=== PATIENT | male | born 1990 | race Caucasian/White ===

== ENCOUNTER 2017-06-12 09:09 | Emergency (ER) | payer OTHER ==
[~2017-06-12] VITALS: Ht 165.1 cm; Wt 52.2 kg
[~2017-06-12 09:09] MED LIST: CLARITIN10 MG PO; ZITHROMAX Z PA250 MG PO
== END 2017-06-12 10:02 | disposition home or self-care (01) ==
LOC: ED 09:09
DX: S60.221A Contusion of right hand, initial encounter (principal); X58.XXXA Exposure to other specified factors, initial encounter; Y93.89 Activity, other specified; Y92.9 Unspecified place or not applicable; Y99.9 Unspecified external cause status

== ENCOUNTER 2017-06-26 17:52 | Emergency (ER) | payer SELFPAY ==
[~2017-06-26] VITALS: Wt 52.2 kg
== END 2017-06-26 19:04 | disposition home or self-care (01) ==
LOC: ED 17:52
DX: Z00.8 Encounter for other general examination (principal)

== ENCOUNTER 2017-09-12 06:32 | Emergency (ER) | payer OTHER ==
[~2017-09-12] VITALS: Ht 162.5 cm; Wt 51.7 kg
[2017-09-12] MEDS ORDERED: IBU800 MG PO (07:48)
== END 2017-09-12 08:40 | disposition home or self-care (01) ==
LOC: ED 06:32
DX: S90.31XA Contusion of right foot, initial encounter (principal); F17.200 Nicotine dependence, unspecified, uncomplicated; W22.8XXA Striking against or struck by other objects, initial encounter; Y93.89 Activity, other specified; Y92.89 Other specified places as the place of occurrence of the external cause; Y99.8 Other external cause status

== ENCOUNTER 2018-03-29 13:30 | Emergency (ER) | payer SELFPAY ==
[~2018-03-29] VITALS: Ht 162.5 cm; Wt 52.2 kg
[~2018-03-29 13:30] MED LIST changes: +IBU800 MG PO
[2018-03-29] MEDS ORDERED: CLINDAMYCIN HC300 MG PO (13:36)
[2018-03-29] MEDS ORDERED: NAPROSYN500 MG PO (13:36)
== END 2018-03-29 13:51 | disposition home or self-care (01) ==
LOC: ED 13:30
DX: K04.7 Periapical abscess without sinus (principal)

== ENCOUNTER 2018-08-27 12:43 | Emergency (ER) | payer SELFPAY ==
[~2018-08-27] VITALS: Ht 162.5 cm; Wt 49.0 kg
[~2018-08-27 12:43] MED LIST changes: +CLINDAMYCIN HC300 MG PO; +NAPROSYN500 MG PO
== END 2018-08-27 13:35 | disposition home or self-care (01) ==
LOC: ED 12:43
DX: Z02.79 Encounter for issue of other medical certificate (principal)

== ENCOUNTER 2019-02-05 05:27 | Emergency (ER) | payer SELFPAY ==
[~2019-02-05] VITALS: Ht 165.1 cm; Wt 50.8 kg
== END 2019-02-05 06:05 | disposition home or self-care (01) ==
LOC: ED 05:27
DX: Z02.79 Encounter for issue of other medical certificate (principal); R05 Cough; R52 Pain, unspecified

== ENCOUNTER 2019-05-01 15:29 | Emergency (ER) | payer SELFPAY ==
[~2019-05-01] VITALS: Ht 162.5 cm; Wt 52.2 kg
== END 2019-05-01 15:47 | disposition home or self-care (01) ==
LOC: ED 15:29
DX: E86.0 Dehydration (principal); Z02.79 Encounter for issue of other medical certificate

== ENCOUNTER 2019-05-07 09:51 | Emergency (ER) | payer OTHER ==
[~2019-05-07] VITALS: Ht 162.5 cm; Wt 49.9 kg
== END 2019-05-07 12:00 | disposition home or self-care (01) ==
LOC: ED 09:51
DX: S92.532A Displaced fracture of distal phalanx of left lesser toe(s), initial encounter for closed fracture (principal); S50.02XA Contusion of left elbow, initial encounter; W22.8XXA Striking against or struck by other objects, initial encounter; Y93.89 Activity, other specified; Y92.89 Other specified places as the place of occurrence of the external cause; Y99.9 Unspecified external cause status

== ENCOUNTER 2019-07-03 12:23 | Emergency (ER) | payer SELFPAY ==
[~2019-07-03] VITALS: Ht 162.5 cm; Wt 49.9 kg
== END 2019-07-03 13:15 | disposition home or self-care (01) ==
LOC: ED 12:23
DX: J02.9 Acute pharyngitis, unspecified (principal); Z02.79 Encounter for issue of other medical certificate

== ENCOUNTER 2019-08-14 12:08 | Emergency (ER) | payer SELFPAY ==
[~2019-08-14] VITALS: Ht 162.5 cm; Wt 51.7 kg
[2019-08-14] MEDS ORDERED: TESSALON PERLE100 M1 PO (13:24)
[2019-08-14] MEDS ORDERED: SEPTDS PO (13:24)
== END 2019-08-14 13:45 | disposition home or self-care (01) ==
LOC: ED 12:08
DX: J32.9 Chronic sinusitis, unspecified (principal)

== ENCOUNTER 2019-12-26 11:35 | Emergency (ER) | payer SELFPAY ==
[~2019-12-26] VITALS: Ht 162.5 cm; Wt 52.6 kg
[~2019-12-26 11:35] MED LIST changes: +SEPTDS PO; +TESSALON PERLE100 M1 PO
[2019-12-26] MEDS ORDERED: VALTREX1000 MG PO (12:41)
[2019-12-26 12:57] LABS: BILIRUBIN NEGATIVE (NEGATIVE); BLOOD NEGATIVE (NEGATIVE); CLARITY CLEAR (CLEAR); COLOR YELLOW (YELLOW); GLUCOSE NEGATIVE (NEGATIVE); KETONE NEGATIVE (NEGATIVE); LEUKO ESTERASE NEGATIVE (NEGATIVE); NITRITE NEGATIVE (NEGATIVE); PH 7.5 (5.0-9.0); UROBILINOGEN 0.2 E.U./dl (0.2-1.0)
[2019-12-26 12:58] LABS: BACTERIA TRACE
[2019-12-27 17:10] LABS: GONOCOCCUS BY NAA Negative (Negative)
== END 2019-12-26 13:07 | disposition home or self-care (01) ==
LOC: ED 11:35
PROVIDERS: Emergency Medicine
DX: A60.01 Herpesviral infection of penis (principal); Z20.2 Contact with and (suspected) exposure to infections with a predominantly sexual mode of transmission

== ENCOUNTER 2020-05-31 08:53 | Emergency (ER) | payer SELFPAY ==
[~2020-05-31] VITALS: Ht 162.5 cm; Wt 52.2 kg
[~2020-05-31 08:53] MED LIST changes: +VALTREX1000 MG PO
[2020-05-31] MEDS ORDERED: VALTREX1000 MG PO (09:12)
== END 2020-05-31 09:22 | disposition home or self-care (01) ==
LOC: ED 08:53
DX: A60.00 Herpesviral infection of urogenital system, unspecified (principal)

== ENCOUNTER 2020-08-15 12:49 | Emergency (ER) | payer SELFPAY ==
[~2020-08-15] VITALS: Wt 52.2 kg
[2020-08-15] MEDS ORDERED: FLONASE ALLERG9.9 ML NAS ×3 (14:09→14:22)
[2020-08-15] MEDS ORDERED: ZITHROMAX250 MG PO ×3 (14:09→14:22)
== END 2020-08-15 14:18 | disposition home or self-care (01) ==
LOC: ED 12:49
DX: J01.90 Acute sinusitis, unspecified (principal); F17.200 Nicotine dependence, unspecified, uncomplicated

== ENCOUNTER 2020-09-22 17:59 | Emergency (ER) | payer SELFPAY ==
[~2020-09-22] VITALS: Wt 51.7 kg
[~2020-09-22 17:59] MED LIST changes: +FLONASE ALLERG9.9 ML NAS; +ZITHROMAX250 MG PO
== END 2020-09-22 18:34 | disposition home or self-care (01) ==
LOC: ED 17:59
DX: U07.1 COVID-19 (principal); B34.9 Viral infection, unspecified; Z79.899 Other long term (current) drug therapy